=== PATIENT | male | born 1940 | race African-American/Black ===

== ENCOUNTER 2018-04-17 16:41 | Inpatient (IN) ==
[2018-04-17 20:58] LABS: Basophils % 0.3 % (0.0-0.8); Eosinophils # 0.1 10*3/uL (0.0-0.87); Eosinophils % 0.8 % (0.00-10.9); Hematocrit 44.6 VOL% (42.0-52.0); Hemoglobin 14.6 GM/DL (14.0-18.0); Immature Granulocytes % 0.5 %; Immature Granulocytes Absolute 0.04 #; Lymphocytes # 1.4 10*3/uL (1.4-4.0); Lymphocytes % 18.6 % (21.2-54.2); Mean Corpuscular HGB Conc 32.7 GM/DL (32-36); Mean Corpuscular Hemoglobin 27 PG (27-34); Mean Corpuscular Volume 82.9 FL (87-102); Mean Platelet Volume 8.9 FL (9.6-12.0); Monocytes # 0.7 10*3/uL (0.11-0.8); Monocytes % 8.4 % (1.7-12.7); NRBC # 0.02 10*3/uL; Neutrophils # 5.6 10*3/uL (1.4-7.4); Neutrophils % 71.4 % (38.7-73.9); Platelet Count 284 T/CUMM (130-400); Red Blood Count 5.38 MC/CUMM (3.8-5.5); Red Cell Distribution Width 16.3 % (9.3-17.3); White Blood Count 7.8 T/CUMM (4-12)
[2018-04-17 21:24] LABS: Calcium 7.7 MG/DL (8.5-10.1); Osmolality,Calculated 278.4 MOS/KG (273-304)
[2018-04-17 21:25] LABS: Potassium 2.4 MMOL/L (3.5-5.1)
[2018-04-17 21:28] LABS: Albumin 2.9 G/DL (3.4-5.0); Bilirubin,Total 0.7 MG/DL (0.2-1.0); Calcium 7.7 MG/DL (8.5-10.1); Osmolality,Calculated 279.4 MOS/KG (273-304); Total Protein 7.8 G/DL (6.4-8.3)
[2018-04-17] MEDS ORDERED: DOCUSATE SODIUM 100 MG CAPSULE PO PRN (21:29)
[2018-04-17] MEDS ORDERED: ACETAMINOPHEN 325 MG TABLET PO PRN (21:29)
[2018-04-17] MEDS ORDERED: ALBUTEROL 2.5 MG/3 ML NEB RESP TX PRN (21:29)
[2018-04-17 21:32] LABS: Potassium 2.4 MMOL/L (3.5-5.1)
[2018-04-17] MEDS: POTASSIUM CHLORIDE RIDER 10 MEQ in PREMIX 1 EACH IV PRN ×3 (21:47→23:44)
[2018-04-17] MEDS ORDERED: DIGOXIN 0.5 MG/2 ML AMP IV ONE (22:00)
[2018-04-17] MEDS: APIXABAN 5 MG TABLET PO SCH (22:02)
[2018-04-17] MEDS: METOPROLOL TARTRATE 25 MG TABLET PO SCH (22:03)
[2018-04-17] MEDS: BUDESONIDE/FORMOTEROL 80-4.5 INHALER 6.9 GM INH SCH (22:47)
[2018-04-17] MEDS: LATANOPROST 0.005% OPH SOLN 2.5 ML BOTTLE BOTH EYES SCH (22:49)
[2018-04-17] MEDS: AMIODARONE INJ 450 MG in DEXTROSE 5% 241 ML IV SCH (23:21)
[2018-04-18] MEDS: POTASSIUM CHLORIDE RIDER 10 MEQ in PREMIX 1 EACH IV PRN ×4 (00:58→07:54)
[2018-04-18 06:28] LABS: Basophils % 0.3 % (0.0-0.8); Eosinophils # 0.2 10*3/uL (0.0-0.87); Eosinophils % 1.9 % (0.00-10.9); Hematocrit 42.9 VOL% (42.0-52.0); Hemoglobin 14.1 GM/DL (14.0-18.0); Immature Granulocytes % 0.4 %; Immature Granulocytes Absolute 0.04 #; Lymphocytes # 1.4 10*3/uL (1.4-4.0); Lymphocytes % 15.7 % (21.2-54.2); Mean Corpuscular HGB Conc 32.9 GM/DL (32-36); Mean Corpuscular Hemoglobin 27 PG (27-34); Mean Corpuscular Volume 82.7 FL (87-102); Mean Platelet Volume 9.3 FL (9.6-12.0); Monocytes # 0.8 10*3/uL (0.11-0.8); Monocytes % 8.8 % (1.7-12.7); Neutrophils # 6.7 10*3/uL (1.4-7.4); Neutrophils % 72.9 % (38.7-73.9); Platelet Count 275 T/CUMM (130-400); Red Blood Count 5.19 MC/CUMM (3.8-5.5); Red Cell Distribution Width 15.9 % (9.3-17.3); White Blood Count 9.2 T/CUMM (4-12)
[2018-04-18 06:45] LABS: Albumin 2.7 G/DL (3.4-5.0); Bilirubin,Total 0.7 MG/DL (0.2-1.0); Calcium 7.5 MG/DL (8.5-10.1); Osmolality,Calculated 276.4 MOS/KG (273-304); Potassium 2.8 MMOL/L (3.5-5.1); Risk Ratio 4.19; Thyroid Stimulating Hormone 1.32 uIU/ml (0.358-3.74); Total Protein 7.2 G/DL (6.4-8.3); VLDL CHOLESTEROL 20.8 MG/DL
[2018-04-18] MEDS ORDERED: MAGNESIUM SULF RIDER 4 GM in PREMIX 1 EACH IV ONE (08:04)
[2018-04-18] MEDS ORDERED: DIGOXIN 0.5 MG/2 ML AMP IV ONE (08:05)
[2018-04-18] MEDS: ASPIRIN EC 81 MG TABLET PO SCH (08:11)
[2018-04-18] MEDS: BRIMONIDINE 0.2% OPH SOLN 5 ML BOTTLE BOTH EYES SCH ×3 (08:11→20:10)
[2018-04-18] MEDS: CALCIUM (CARBONATE)/VITAMIN D 600 MG-400 UNIT TABLET PO SCH (08:11)
[2018-04-18] MEDS: APIXABAN 5 MG TABLET PO SCH ×2 (08:11→20:09)
[2018-04-18] MEDS: METOPROLOL TARTRATE 25 MG TABLET PO SCH ×2 (08:12→20:09)
[2018-04-18] MEDS: PANTOPRAZOLE 40 MG TABLET PO SCH (08:12)
[2018-04-18] MEDS ORDERED: ALBUTEROL/IPRATROPIUM 3 ML NEB RESP TX PRN (08:13)
[2018-04-18] MEDS: BUDESONIDE/FORMOTEROL 80-4.5 INHALER 6.9 GM INH SCH ×2 (08:40→20:09)
[2018-04-18] MEDS: LISINOPRIL 10 MG TABLET PO SCH (08:41)
[2018-04-18] MEDS: POTASSIUM CHLORIDE 20 MEQ TABLET PO SCH ×4 (08:51→20:09)
[2018-04-18 09:54] LABS: Amorphous Crystals,Urine Occasional /HPF (Few); Apearance,Urine CLEAR (Clear); Bilirubin,Urine Negative (Negative); Blood, Urine Large mg/dL (Negative); Glucose,Urine (UA) Negative (Negative); Hyaline Casts,Urine 14 /LPF (0-3); Ketones,Urine Negative (Negative); Mucus,Urine Occasional /LPF (Occasional); Nitrite,Urine Negative (Negative); Protein,Urine Negative; RBC,Urine 63 /HPF (0-4); Urine Color Yellow (Yellow); Urine Specific Gravity 1.008 (1.001-1.035); Urine Urobilinogen < 2.0 EU/DL (0.2-1.0); WBC,Urine 2 /HPF (0-6)
[2018-04-18] MEDS: ALBUTEROL/IPRATROPIUM 3 ML NEB RESP TX SCH ×3 (11:40→20:09)
[2018-04-18] MEDS: DIGOXIN 0.125 MG TABLET PO SCH (12:08)
[2018-04-18] MEDS: AMIODARONE INJ 450 MG in DEXTROSE 5% 241 ML IV SCH (16:11)
[2018-04-18] MEDS: LATANOPROST 0.005% OPH SOLN 2.5 ML BOTTLE BOTH EYES SCH (20:09)
[2018-04-19] MEDS: POTASSIUM CHLORIDE 20 MEQ TABLET PO SCH ×4 (00:14→21:49)
[2018-04-19] MEDS: ALBUTEROL/IPRATROPIUM 3 ML NEB RESP TX SCH ×5 (01:13→19:42)
[2018-04-19 05:08] LABS: Basophils % 0.4 % (0.0-0.8); Eosinophils # 0.3 10*3/uL (0.0-0.87); Eosinophils % 3.6 % (0.00-10.9); Hematocrit 43.1 VOL% (42.0-52.0); Hemoglobin 13.9 GM/DL (14.0-18.0); Immature Granulocytes % 0.4 %; Immature Granulocytes Absolute 0.03 #; Lymphocytes # 1.8 10*3/uL (1.4-4.0); Lymphocytes % 21.7 % (21.2-54.2); Mean Corpuscular HGB Conc 32.3 GM/DL (32-36); Mean Corpuscular Hemoglobin 27 PG (27-34); Mean Corpuscular Volume 84.8 FL (87-102); Mean Platelet Volume 9.1 FL (9.6-12.0); Monocytes # 0.8 10*3/uL (0.11-0.8); Monocytes % 9.6 % (1.7-12.7); Neutrophils # 5.3 10*3/uL (1.4-7.4); Neutrophils % 64.3 % (38.7-73.9); Platelet Count 263 T/CUMM (130-400); Red Blood Count 5.08 MC/CUMM (3.8-5.5); Red Cell Distribution Width 15.9 % (9.3-17.3); White Blood Count 8.3 T/CUMM (4-12)
[2018-04-19 05:26] LABS: Calcium 7.1 MG/DL (8.5-10.1); Osmolality,Calculated 274.5 MOS/KG (273-304); Potassium 3.8 MMOL/L (3.5-5.1)
[2018-04-19] MEDS: METOPROLOL TARTRATE 25 MG TABLET PO SCH ×2 (09:10→21:49)
[2018-04-19] MEDS: APIXABAN 5 MG TABLET PO SCH ×2 (09:10→21:49)
[2018-04-19] MEDS: FUROSEMIDE 40 MG/4 ML VIAL IV SCH (09:11)
[2018-04-19] MEDS: CALCIUM (CARBONATE)/VITAMIN D 600 MG-400 UNIT TABLET PO SCH (09:11)
[2018-04-19] MEDS: LISINOPRIL 10 MG TABLET PO SCH (09:11)
[2018-04-19] MEDS: ASPIRIN EC 81 MG TABLET PO SCH (09:11)
[2018-04-19] MEDS: PANTOPRAZOLE 40 MG TABLET PO SCH (09:11)
[2018-04-19] MEDS: BRIMONIDINE 0.2% OPH SOLN 5 ML BOTTLE BOTH EYES SCH ×3 (09:15→21:49)
[2018-04-19] MEDS: BUDESONIDE/FORMOTEROL 80-4.5 INHALER 6.9 GM INH SCH ×2 (09:15→21:49)
[2018-04-19] MEDS: AMIODARONE INJ 450 MG in DEXTROSE 5% 241 ML IV SCH (09:23)
[2018-04-19] MEDS: DIGOXIN 0.125 MG TABLET PO SCH (14:52)
[2018-04-19] MEDS: LATANOPROST 0.005% OPH SOLN 2.5 ML BOTTLE BOTH EYES SCH (21:53)
[2018-04-20] MEDS: AMIODARONE INJ 450 MG in DEXTROSE 5% 241 ML IV SCH ×2 (00:24→17:32)
[2018-04-20] MEDS: ALBUTEROL/IPRATROPIUM 3 ML NEB RESP TX SCH ×7 (01:07→23:46)
[2018-04-20 05:49] LABS: Calcium 6.4 MG/DL (8.5-10.1); Osmolality,Calculated 280.3 MOS/KG (273-304); Potassium 4.1 MMOL/L (3.5-5.1)
[2018-04-20] MEDS: METOPROLOL TARTRATE 25 MG TABLET PO SCH ×2 (09:38→21:42)
[2018-04-20] MEDS: PANTOPRAZOLE 40 MG TABLET PO SCH (09:38)
[2018-04-20] MEDS: ASPIRIN EC 81 MG TABLET PO SCH (09:38)
[2018-04-20] MEDS: CALCIUM (CARBONATE)/VITAMIN D 600 MG-400 UNIT TABLET PO SCH (09:38)
[2018-04-20] MEDS: APIXABAN 5 MG TABLET PO SCH ×2 (09:38→21:43)
[2018-04-20] MEDS: FUROSEMIDE 40 MG/4 ML VIAL IV SCH (09:39)
[2018-04-20] MEDS: POTASSIUM CHLORIDE 20 MEQ TABLET PO SCH (09:39)
[2018-04-20] MEDS: LISINOPRIL 10 MG TABLET PO SCH (09:39)
[2018-04-20] MEDS: BRIMONIDINE 0.2% OPH SOLN 5 ML BOTTLE BOTH EYES SCH ×3 (09:43→21:42)
[2018-04-20] MEDS: BUDESONIDE/FORMOTEROL 80-4.5 INHALER 6.9 GM INH SCH ×2 (09:43→21:42)
[2018-04-20] MEDS: DIGOXIN 0.125 MG TABLET PO SCH (14:25)
[2018-04-20] MEDS: LATANOPROST 0.005% OPH SOLN 2.5 ML BOTTLE BOTH EYES SCH (21:42)
[2018-04-21] MEDS: ALBUTEROL/IPRATROPIUM 3 ML NEB RESP TX SCH ×4 (03:00→15:05)
[2018-04-21 05:01] LABS: Basophils # 0.1 10*3/uL (0.0-0.2); Basophils % 0.6 % (0.0-0.8); Eosinophils # 0.4 10*3/uL (0.0-0.87); Eosinophils % 4.7 % (0.00-10.9); Hematocrit 39.6 VOL% (42.0-52.0); Hemoglobin 12.9 GM/DL (14.0-18.0); Immature Granulocytes % 0.6 %; Immature Granulocytes Absolute 0.05 #; Lymphocytes # 1.6 10*3/uL (1.4-4.0); Lymphocytes % 20.6 % (21.2-54.2); Mean Corpuscular HGB Conc 32.6 GM/DL (32-36); Mean Corpuscular Hemoglobin 28 PG (27-34); Mean Corpuscular Volume 85.5 FL (87-102); Mean Platelet Volume 9.1 FL (9.6-12.0); Monocytes # 0.8 10*3/uL (0.11-0.8); Monocytes % 10.5 % (1.7-12.7); Platelet Count 234 T/CUMM (130-400); Red Blood Count 4.63 MC/CUMM (3.8-5.5); White Blood Count 7.9 T/CUMM (4-12)
[2018-04-21 05:37] LABS: Calcium 6.3 MG/DL (8.5-10.1); Osmolality,Calculated 274.7 MOS/KG (273-304); Potassium 3.8 MMOL/L (3.5-5.1)
[2018-04-21] MEDS ORDERED: MIDAZOLAM 2 MG/2 ML VIAL ONE (06:33)
[2018-04-21] MEDS ORDERED: MIDAZOLAM 2 MG/2 ML VIAL IV ONE ×2 (06:39→06:42)
[2018-04-21] MEDS: METOPROLOL TARTRATE 25 MG TABLET PO SCH ×2 (08:54→21:15)
[2018-04-21] MEDS: CALCIUM (CARBONATE)/VITAMIN D 600 MG-400 UNIT TABLET PO SCH (08:54)
[2018-04-21] MEDS: AMIODARONE 200 MG TABLET PO SCH ×2 (08:54→21:16)
[2018-04-21] MEDS: APIXABAN 5 MG TABLET PO SCH ×2 (08:55→21:15)
[2018-04-21] MEDS: FUROSEMIDE 40 MG/4 ML VIAL IV SCH (08:55)
[2018-04-21] MEDS: PANTOPRAZOLE 40 MG TABLET PO SCH (08:55)
[2018-04-21] MEDS: BRIMONIDINE 0.2% OPH SOLN 5 ML BOTTLE BOTH EYES SCH ×3 (08:55→21:16)
[2018-04-21] MEDS: ASPIRIN EC 81 MG TABLET PO SCH (08:55)
[2018-04-21] MEDS: LISINOPRIL 10 MG TABLET PO SCH (08:55)
[2018-04-21] MEDS: BUDESONIDE/FORMOTEROL 80-4.5 INHALER 6.9 GM INH SCH ×2 (08:55→21:16)
[2018-04-21] MEDS: AMIODARONE INJ 450 MG in DEXTROSE 5% 241 ML IV SCH (09:07)
[2018-04-21] MEDS ORDERED: MAGNESIUM SULF RIDER 4 GM in PREMIX 1 EACH IV ONE (11:19)
[2018-04-21] MEDS: DIGOXIN 0.125 MG TABLET PO SCH (12:34)
[2018-04-21] MEDS ORDERED: LEVALBUTEROL 0.63 MG/3 ML NEB RESP TX PRN (18:36)
[2018-04-21] MEDS: IPRATROPIUM 500 MCG/2.5 ML NEB RESP TX SCH (19:29)
[2018-04-21] MEDS: LEVALBUTEROL 0.63 MG/3 ML NEB RESP TX SCH ×2 (19:29→19:30)
[2018-04-21] MEDS: LATANOPROST 0.005% OPH SOLN 2.5 ML BOTTLE BOTH EYES SCH (21:17)
[2018-04-22] MEDS: LEVALBUTEROL 0.63 MG/3 ML NEB RESP TX SCH ×4 (00:47→20:09)
[2018-04-22] MEDS: IPRATROPIUM 500 MCG/2.5 ML NEB RESP TX SCH ×4 (00:47→20:09)
[2018-04-22 05:09] LABS: Basophils # 0.1 10*3/uL (0.0-0.2); Basophils % 0.7 % (0.0-0.8); Eosinophils # 0.3 10*3/uL (0.0-0.87); Eosinophils % 3.6 % (0.00-10.9); Hematocrit 41.9 VOL% (42.0-52.0); Hemoglobin 13.2 GM/DL (14.0-18.0); Immature Granulocytes % 0.3 %; Immature Granulocytes Absolute 0.02 #; Lymphocytes # 1.6 10*3/uL (1.4-4.0); Lymphocytes % 20.7 % (21.2-54.2); Mean Corpuscular HGB Conc 31.5 GM/DL (32-36); Mean Corpuscular Hemoglobin 27 PG (27-34); Monocytes # 0.7 10*3/uL (0.11-0.8); Monocytes % 9.9 % (1.7-12.7); Neutrophils # 4.9 10*3/uL (1.4-7.4); Neutrophils % 64.8 % (38.7-73.9); Platelet Count 246 T/CUMM (130-400); Red Blood Count 4.93 MC/CUMM (3.8-5.5); Red Cell Distribution Width 15.8 % (9.3-17.3); White Blood Count 7.5 T/CUMM (4-12)
[2018-04-22 05:29] LABS: Calcium 6.4 MG/DL (8.5-10.1); Osmolality,Calculated 276.5 MOS/KG (273-304); Potassium 3.5 MMOL/L (3.5-5.1)
[2018-04-22] MEDS: POTASSIUM CHLORIDE RIDER 10 MEQ in PREMIX 1 EACH IV PRN ×3 (09:35→12:41)
[2018-04-22] MEDS: LISINOPRIL 10 MG TABLET PO SCH (09:36)
[2018-04-22] MEDS: CALCIUM (CARBONATE)/VITAMIN D 600 MG-400 UNIT TABLET PO SCH (09:36)
[2018-04-22] MEDS: FUROSEMIDE 40 MG/4 ML VIAL IV SCH (09:36)
[2018-04-22] MEDS: ASPIRIN EC 81 MG TABLET PO SCH (09:36)
[2018-04-22] MEDS: AMIODARONE 200 MG TABLET PO SCH ×2 (09:36→21:26)
[2018-04-22] MEDS: APIXABAN 5 MG TABLET PO SCH ×2 (09:36→21:26)
[2018-04-22] MEDS: PANTOPRAZOLE 40 MG TABLET PO SCH (09:36)
[2018-04-22] MEDS: METOPROLOL TARTRATE 25 MG TABLET PO SCH ×2 (09:36→21:26)
[2018-04-22] MEDS: BUDESONIDE/FORMOTEROL 80-4.5 INHALER 6.9 GM INH SCH ×2 (09:37→21:26)
[2018-04-22] MEDS: BRIMONIDINE 0.2% OPH SOLN 5 ML BOTTLE BOTH EYES SCH ×3 (09:37→21:26)
[2018-04-22] MEDS: DIGOXIN 0.125 MG TABLET PO SCH (12:39)
[2018-04-22] MEDS: LATANOPROST 0.005% OPH SOLN 2.5 ML BOTTLE BOTH EYES SCH (21:30)
[2018-04-23] MEDS: IPRATROPIUM 500 MCG/2.5 ML NEB RESP TX SCH ×4 (00:50→19:24)
[2018-04-23] MEDS: LEVALBUTEROL 0.63 MG/3 ML NEB RESP TX SCH ×4 (00:50→19:24)
[2018-04-23] MEDS ORDERED: LORazepam 2 MG/1 ML VIAL IV ONE (04:46)
[2018-04-23 05:46] LABS: Basophils # 0.1 10*3/uL (0.0-0.2); Basophils % 0.7 % (0.0-0.8); Eosinophils # 0.4 10*3/uL (0.0-0.87); Eosinophils % 5.1 % (0.00-10.9); Hemoglobin 12.1 GM/DL (14.0-18.0); Immature Granulocytes % 0.4 %; Immature Granulocytes Absolute 0.03 #; Lymphocytes # 1.7 10*3/uL (1.4-4.0); Lymphocytes % 23.4 % (21.2-54.2); Mean Corpuscular HGB Conc 31.8 GM/DL (32-36); Mean Corpuscular Hemoglobin 27 PG (27-34); Mean Corpuscular Volume 84.4 FL (87-102); Mean Platelet Volume 8.8 FL (9.6-12.0); Monocytes # 0.8 10*3/uL (0.11-0.8); Monocytes % 11.5 % (1.7-12.7); Neutrophils # 4.3 10*3/uL (1.4-7.4); Neutrophils % 58.9 % (38.7-73.9); Platelet Count 222 T/CUMM (130-400); Red Cell Distribution Width 15.6 % (9.3-17.3); White Blood Count 7.3 T/CUMM (4-12)
[2018-04-23 06:07] LABS: Calcium 5.9 MG/DL (8.5-10.1); Osmolality,Calculated 272.8 MOS/KG (273-304); Potassium 3.6 MMOL/L (3.5-5.1)
[2018-04-23] MEDS ORDERED: POTASSIUM CHLORIDE 20 MEQ TABLET PO PRN (07:37)
[2018-04-23] MEDS ORDERED: MAGNESIUM OXIDE 400 MG TABLET PO ONE (08:12)
[2018-04-23] MEDS: APIXABAN 5 MG TABLET PO SCH ×2 (09:34→20:56)
[2018-04-23] MEDS: FUROSEMIDE 40 MG/4 ML VIAL IV SCH (09:35)
[2018-04-23] MEDS: ASPIRIN EC 81 MG TABLET PO SCH (09:35)
[2018-04-23] MEDS: CALCIUM (CARBONATE)/VITAMIN D 600 MG-400 UNIT TABLET PO SCH (09:35)
[2018-04-23] MEDS: METOPROLOL TARTRATE 25 MG TABLET PO SCH ×2 (09:35→20:56)
[2018-04-23] MEDS: AMIODARONE 200 MG TABLET PO SCH ×2 (09:35→20:56)
[2018-04-23] MEDS: PANTOPRAZOLE 40 MG TABLET PO SCH (09:35)
[2018-04-23] MEDS: LISINOPRIL 10 MG TABLET PO SCH (09:35)
[2018-04-23] MEDS: BRIMONIDINE 0.2% OPH SOLN 5 ML BOTTLE BOTH EYES SCH ×3 (09:36→20:58)
[2018-04-23] MEDS: BUDESONIDE/FORMOTEROL 80-4.5 INHALER 6.9 GM INH SCH ×2 (09:36→20:57)
[2018-04-23] MEDS: DIGOXIN 0.125 MG TABLET PO SCH (14:15)
[2018-04-23] MEDS: LATANOPROST 0.005% OPH SOLN 2.5 ML BOTTLE BOTH EYES SCH (20:59)
[2018-04-24] MEDS: LEVALBUTEROL 0.63 MG/3 ML NEB RESP TX SCH ×3 (00:43→12:27)
[2018-04-24] MEDS: IPRATROPIUM 500 MCG/2.5 ML NEB RESP TX SCH ×3 (00:43→12:27)
[2018-04-24] MEDS ORDERED: LORazepam 2 MG/1 ML VIAL IV ONE (04:19)
[2018-04-24] MEDS ORDERED: BISACODYL 5 MG TABLET PO PRN (04:19)
[2018-04-24] MEDS ORDERED: LISINOPRIL 10 MG TABLET PO SCH (09:00)
[2018-04-24] MEDS: METOPROLOL TARTRATE 25 MG TABLET PO SCH (09:16)
[2018-04-24] MEDS: FUROSEMIDE 40 MG/4 ML VIAL IV SCH (09:16)
[2018-04-24] MEDS: AMIODARONE 200 MG TABLET PO SCH (09:17)
[2018-04-24] MEDS: PANTOPRAZOLE 40 MG TABLET PO SCH (09:17)
[2018-04-24] MEDS: BUDESONIDE/FORMOTEROL 80-4.5 INHALER 6.9 GM INH SCH (09:17)
[2018-04-24] MEDS: APIXABAN 5 MG TABLET PO SCH (09:17)
[2018-04-24] MEDS: ASPIRIN EC 81 MG TABLET PO SCH (09:17)
[2018-04-24] MEDS: CALCIUM (CARBONATE)/VITAMIN D 600 MG-400 UNIT TABLET PO SCH (09:21)
[2018-04-24] MEDS: BRIMONIDINE 0.2% OPH SOLN 5 ML BOTTLE BOTH EYES SCH (09:21)
[2018-04-24 12:17] VITALS: BP 92/61
== END 2018-04-24 13:15 | disposition home health service (06) | DRG 308 ==
LOC: SUATTDRO 20:02 → N.CC 20:02 → N.TELEN 04-21 18:32
PROVIDERS: ADMIT Internal Medicine; ATTEND Internal Medicine Geriatric Medicine

== ENCOUNTER 2018-07-01 14:28 | Inpatient (IN) ==
[2018-07-01] MEDS ORDERED: ALBUTEROL/IPRATROPIUM 3 ML NEB RESP TX PRN (14:51)
[2018-07-01] MEDS ORDERED: NOREPINEPHRINE 4 MG/4 ML VIAL IV ONE (14:53)
[2018-07-01] MEDS ORDERED: ETOMIDATE 20 MG/10 ML VIAL IV ONE ×2 (14:58→16:22)
[2018-07-01] MEDS ORDERED: ROCURONIUM 100 MG/10 ML VIAL IV ONE ×2 (14:59→16:22)
[2018-07-01 15:06] LABS: Basophils # 0.1 10*3/uL (0.0-0.2); Basophils % 0.5 % (0.0-0.8); Eosinophils # 0.1 10*3/uL (0.0-0.87); Eosinophils % 0.7 % (0.00-10.9); Hematocrit 45.7 VOL% (42.0-52.0); Hemoglobin 14.3 GM/DL (14.0-18.0); Immature Granulocytes % 3.8 %; Immature Granulocytes Absolute 0.48 #; Lymphocytes # 2.5 10*3/uL (1.4-4.0); Lymphocytes % 19.8 % (21.2-54.2); Mean Corpuscular HGB Conc 31.3 GM/DL (32-36); Mean Corpuscular Hemoglobin 28 PG (27-34); Mean Corpuscular Volume 89.4 FL (87-102); Mean Platelet Volume 9.8 FL (9.6-12.0); Monocytes # 0.5 10*3/uL (0.11-0.8); Monocytes % 3.7 % (1.7-12.7); NRBC # 0.02 10*3/uL; Neutrophils # 9.1 10*3/uL (1.4-7.4); Neutrophils % 71.5 % (38.7-73.9); Platelet Count 296 T/CUMM (130-400); Red Blood Count 5.11 MC/CUMM (3.8-5.5); Red Cell Distribution Width 16.4 % (9.3-17.3); White Blood Count 12.7 T/CUMM (4-12)
[2018-07-01 15:09] LABS: ABG Base Excess -6.4 MMOL/L (-2.5-2.5); ABG HCO3 19.3 MMOL/L (20-26); ABG PCO2 45.5 MM HG (35-48); ABG PO2 91.4 MM HG (80-95); ABG TCO2 18.1 MMOL/L (23-27)
[2018-07-01 15:14] LABS: INR 1.1; PT Patient Result 12.3 SECS
[2018-07-01] MEDS: NOREPINEPHRINE 8 MG in SODIUM CHLORIDE 0.9% 242 ML IV PRN (15:30)
[2018-07-01] MEDS: SODIUM CHLORIDE 0.9% 1,000 ML IV SCH (15:30)
[2018-07-01 15:31] LABS: Albumin 2.6 G/DL (3.4-5.0); Bilirubin,Total 0.7 MG/DL (0.2-1.0); Osmolality,Calculated 285.3 MOS/KG (273-304); Potassium 3.9 MMOL/L (3.5-5.1); Total Protein 7.8 G/DL (6.4-8.3)
[2018-07-01 15:33] LABS: Calcium 5.6 MG/DL (8.5-10.1)
[2018-07-01] MEDS ORDERED: CALCIUM GLUCONATE 2,000 MG in SODIUM CHLORIDE 0.9% 100 ML IV ONE (15:52)
[2018-07-01] MEDS ORDERED: HEPARIN/NACL 0.9% 2 UNITS/ML 500 ML IV ONE (16:43)
[2018-07-01] MEDS ORDERED: EPINEPHrine 1 MG/ML VIAL ONE (17:03)
[2018-07-01] MEDS ORDERED: MAGNESIUM SULF RIDER 4 GM in PREMIX 1 EACH IV PRN (17:18)
[2018-07-01] MEDS ORDERED: DEXTROSE 50% 25 GM/50 ML SYRINGE IV PRN (17:20)
[2018-07-01] MEDS ORDERED: GLUCAGON 1 MG VIAL IM PRN (17:20)
[2018-07-01] MEDS: PANTOPRAZOLE 40 MG VIAL IV SCH (17:22)
[2018-07-01] MEDS: CISATRACURIUM 200 MG in SODIUM CHLORIDE 0.9% 180 ML IV SCH (17:22)
[2018-07-01] MEDS: fentaNYL INJ 1,250 MCG in SODIUM CHLORIDE 0.9% 225 ML IV PRN (17:35)
[2018-07-01 18:05] LABS: Partial Thromboplastin Time 28.2 SECS (0-40)
[2018-07-01 18:49] LABS: ABG Base Excess 0.4 MMOL/L (-2.5-2.5); ABG HCO3 24.8 MMOL/L (20-26); ABG PCO2 26.6 MM HG (35-48); ABG PH 7.516 (7.35-7.45); ABG TCO2 17.7 MMOL/L (23-27)
[2018-07-01] MEDS: LEVOFLOXACIN INJ 500 MG in PREMIX 1 EACH IV SCH (18:58)
[2018-07-01] MEDS: PIPERACILLIN/TAZOBACTAM 3,375 MG in SODIUM CHLORIDE 0.9% 100 ML IV SCH (18:58)
[2018-07-01] MEDS ORDERED: SODIUM CHLORIDE 0.9% 250 ML IV ONE (20:15)
[2018-07-01] MEDS: PROPOFOL 1,000 MG/100 ML BOTTLE IV SCH ×2 (20:54→22:10)
[2018-07-01] MEDS: INSULIN REGULAR 100 UNIT/ML IV SCH (20:55)
[2018-07-01 21:56] LABS: Basophils % 0.2 % (0.0-0.8); Eosinophils % 0.1 % (0.00-10.9); Hematocrit 43.6 VOL% (42.0-52.0); Hemoglobin 14.2 GM/DL (14.0-18.0); Immature Granulocytes % 1.5 %; Immature Granulocytes Absolute 0.21 #; Lymphocytes % 7.1 % (21.2-54.2); Mean Corpuscular HGB Conc 32.6 GM/DL (32-36); Mean Corpuscular Hemoglobin 28 PG (27-34); Mean Corpuscular Volume 86.2 FL (87-102); Mean Platelet Volume 9.4 FL (9.6-12.0); Monocytes # 0.7 10*3/uL (0.11-0.8); Neutrophils # 12.2 10*3/uL (1.4-7.4); Neutrophils % 86.1 % (38.7-73.9); Platelet Count 255 T/CUMM (130-400); Red Blood Count 5.06 MC/CUMM (3.8-5.5); Red Cell Distribution Width 16.4 % (9.3-17.3); White Blood Count 14.2 T/CUMM (4-12)
[2018-07-01 22:04] LABS: INR 1.4; PT Patient Result 15.4 SECS; Partial Thromboplastin Time 29.9 SECS (0-40)
[2018-07-01] MEDS: MINERAL OIL/PETROLATUM OPH OINT 3.5 GM TUBE BOTH EYES SCH (22:07)
[2018-07-01 22:12] LABS: Troponin I 0.425 NG/ML (0.00-0.045)
[2018-07-01 22:15] LABS: Calcium 6.1 MG/DL (8.5-10.1); Osmolality,Calculated 299.7 MOS/KG (273-304)
[2018-07-01 22:23] LABS: Potassium 2.4 MMOL/L (3.5-5.1)
[2018-07-01] MEDS: POTASSIUM CHLORIDE RIDER 20 MEQ in PREMIX 1 EACH IV PRN (22:29)
[2018-07-01] MEDS: MAGNESIUM SULF RIDER 2 GM in PREMIX 1 EACH IV PRN (22:35)
[2018-07-01 23:06] LABS: Apearance,Urine CLOUDY (Clear); Bacteria,Urine Occasional /HPF (Few); Bilirubin,Urine Negative (Negative); Blood, Urine Large mg/dL (Negative); Glucose,Urine (UA) 50 mg/dL (Negative); Ketones,Urine Negative (Negative); Nitrite,Urine Negative (Negative); Protein,Urine 30 MG/DL; RBC,Urine 4996 /HPF (0-4); Urine Color Red (Yellow); Urine Specific Gravity 1.006 (1.001-1.035); Urine Urobilinogen < 2.0 EU/DL (0.2-1.0); WBC,Urine 58 /HPF (0-6)
[2018-07-02] MEDS: POTASSIUM CHLORIDE RIDER 20 MEQ in PREMIX 1 EACH IV PRN ×3 (00:05→05:38)
[2018-07-02] MEDS: INSULIN REGULAR 100 UNIT/ML IV SCH ×6 (00:19→20:28)
[2018-07-02] MEDS: PIPERACILLIN/TAZOBACTAM 3,375 MG in SODIUM CHLORIDE 0.9% 100 ML IV SCH ×3 (01:57→18:14)
[2018-07-02 03:46] LABS: Basophils % 0.2 % (0.0-0.8); Hematocrit 42.5 VOL% (42.0-52.0); Hemoglobin 13.9 GM/DL (14.0-18.0); Immature Granulocytes % 0.8 %; Lymphocytes # 0.7 10*3/uL (1.4-4.0); Lymphocytes % 5.1 % (21.2-54.2); Mean Corpuscular HGB Conc 32.7 GM/DL (32-36); Mean Corpuscular Hemoglobin 28 PG (27-34); Mean Corpuscular Volume 85.5 FL (87-102); Mean Platelet Volume 9.8 FL (9.6-12.0); Monocytes # 0.8 10*3/uL (0.11-0.8); Neutrophils # 11.6 10*3/uL (1.4-7.4); Neutrophils % 87.9 % (38.7-73.9); Platelet Count 248 T/CUMM (130-400); Red Blood Count 4.97 MC/CUMM (3.8-5.5); Red Cell Distribution Width 16.2 % (9.3-17.3); White Blood Count 13.2 T/CUMM (4-12)
[2018-07-02 03:56] LABS: INR 1.5; Partial Thromboplastin Time 32.5 SECS (0-40)
[2018-07-02 03:57] LABS: ABG Base Excess -1.5 MMOL/L (-2.5-2.5); ABG HCO3 23.2 MMOL/L (20-26); ABG Oxygen Saturation 99.3 % (95-100); ABG PCO2 31.4 MM HG (35-48); ABG PH 7.443 (7.35-7.45); ABG TCO2 18.3 MMOL/L (23-27); Pt O2 Delivery Device Ventilator
[2018-07-02 04:10] LABS: Troponin I 0.314 NG/ML (0.00-0.045)
[2018-07-02 04:14] LABS: Albumin 2.5 G/DL (3.4-5.0); Bilirubin,Total 1.2 MG/DL (0.2-1.0); Osmolality,Calculated 295.8 MOS/KG (273-304); Potassium 3.7 MMOL/L (3.5-5.1); Risk Ratio 2.86; Thyroid Stimulating Hormone 2.82 uIU/ml (0.358-3.74); Total Protein 6.9 G/DL (6.4-8.3); VLDL CHOLESTEROL 15.8 MG/DL
[2018-07-02 04:23] LABS: Calcium 5.8 MG/DL (8.5-10.1)
[2018-07-02] MEDS ORDERED: CALCIUM GLUCONATE 2,000 MG in SODIUM CHLORIDE 0.9% 100 ML IV ONE ×2 (05:00→09:00)
[2018-07-02] MEDS: SODIUM CHLORIDE 0.9% 1,000 ML IV SCH ×3 (05:41→09:47)
[2018-07-02 06:28] LABS: Apearance,Urine Slightly Hazy (Clear); Bilirubin,Urine Negative (Negative); Blood, Urine Large mg/dL (Negative); Glucose,Urine (UA) Negative (Negative); Ketones,Urine Negative (Negative); Mucus,Urine Occasional /LPF (Occasional); Nitrite,Urine Negative (Negative); Protein,Urine Negative; RBC,Urine 951 /HPF (0-4); Urine Color Yellow (Yellow); Urine Specific Gravity 1.009 (1.001-1.035); Urine Urobilinogen < 2.0 EU/DL (0.2-1.0); WBC,Urine <1 /HPF (0-6)
[2018-07-02] MEDS: fentaNYL INJ 1,250 MCG in SODIUM CHLORIDE 0.9% 225 ML IV PRN (08:28)
[2018-07-02] MEDS: MINERAL OIL/PETROLATUM OPH OINT 3.5 GM TUBE BOTH EYES SCH ×3 (09:12→21:11)
[2018-07-02 09:54] LABS: Basophils % 0.1 % (0.0-0.8); Hematocrit 43.3 VOL% (42.0-52.0); Hemoglobin 14.2 GM/DL (14.0-18.0); Immature Granulocytes % 0.5 %; Immature Granulocytes Absolute 0.06 #; Lymphocytes # 0.9 10*3/uL (1.4-4.0); Lymphocytes % 7.2 % (21.2-54.2); Mean Corpuscular HGB Conc 32.8 GM/DL (32-36); Mean Corpuscular Hemoglobin 28 PG (27-34); Mean Corpuscular Volume 85.6 FL (87-102); Mean Platelet Volume 9.5 FL (9.6-12.0); Monocytes # 0.7 10*3/uL (0.11-0.8); Monocytes % 5.7 % (1.7-12.7); Neutrophils # 10.9 10*3/uL (1.4-7.4); Neutrophils % 86.5 % (38.7-73.9); Platelet Count 242 T/CUMM (130-400); Red Blood Count 5.06 MC/CUMM (3.8-5.5); Red Cell Distribution Width 16.6 % (9.3-17.3); White Blood Count 12.5 T/CUMM (4-12)
[2018-07-02 10:03] LABS: Osmolality,Calculated 298.6 MOS/KG (273-304)
[2018-07-02 10:05] LABS: INR 1.5; PT Patient Result 15.7 SECS; Partial Thromboplastin Time 31.4 SECS (0-40)
[2018-07-02 10:09] LABS: Troponin I 0.192 NG/ML (0.00-0.045)
[2018-07-02] MEDS: PANTOPRAZOLE 40 MG VIAL IV SCH (14:23)
[2018-07-02 16:00] LABS: Basophils % 0.2 % (0.0-0.8); Hematocrit 43.8 VOL% (42.0-52.0); Immature Granulocytes % 0.6 %; Immature Granulocytes Absolute 0.07 #; Lymphocytes # 0.7 10*3/uL (1.4-4.0); Lymphocytes % 6.5 % (21.2-54.2); Mean Corpuscular Hemoglobin 28 PG (27-34); Mean Corpuscular Volume 86.2 FL (87-102); Mean Platelet Volume 9.7 FL (9.6-12.0); Monocytes # 0.6 10*3/uL (0.11-0.8); Monocytes % 5.1 % (1.7-12.7); Neutrophils # 9.9 10*3/uL (1.4-7.4); Neutrophils % 87.6 % (38.7-73.9); Platelet Count 228 T/CUMM (130-400); Red Blood Count 5.08 MC/CUMM (3.8-5.5); Red Cell Distribution Width 16.7 % (9.3-17.3); White Blood Count 11.3 T/CUMM (4-12)
[2018-07-02 16:11] LABS: INR 1.4; PT Patient Result 15.6 SECS; Partial Thromboplastin Time 33.4 SECS (0-40)
[2018-07-02 16:17] LABS: Osmolality,Calculated 296.7 MOS/KG (273-304); Potassium 3.9 MMOL/L (3.5-5.1)
[2018-07-02] MEDS: LEVOFLOXACIN INJ 500 MG in PREMIX 1 EACH IV SCH (17:06)
[2018-07-02] MEDS: PROPOFOL 1,000 MG/100 ML BOTTLE IV SCH (17:09)
[2018-07-02] MEDS: CISATRACURIUM 200 MG in SODIUM CHLORIDE 0.9% 180 ML IV SCH (17:10)
[2018-07-02 22:30] LABS: Basophils % 0.1 % (0.0-0.8); Hematocrit 41.5 VOL% (42.0-52.0); Hemoglobin 13.5 GM/DL (14.0-18.0); Immature Granulocytes % 0.5 %; Immature Granulocytes Absolute 0.06 #; Lymphocytes # 0.7 10*3/uL (1.4-4.0); Lymphocytes % 6.3 % (21.2-54.2); Mean Corpuscular HGB Conc 32.5 GM/DL (32-36); Mean Corpuscular Hemoglobin 28 PG (27-34); Mean Corpuscular Volume 86.6 FL (87-102); Mean Platelet Volume 9.9 FL (9.6-12.0); Monocytes # 0.5 10*3/uL (0.11-0.8); Monocytes % 4.5 % (1.7-12.7); Neutrophils # 9.7 10*3/uL (1.4-7.4); Neutrophils % 88.6 % (38.7-73.9); Platelet Count 221 T/CUMM (130-400); Red Blood Count 4.79 MC/CUMM (3.8-5.5); Red Cell Distribution Width 16.8 % (9.3-17.3)
[2018-07-02 22:41] LABS: INR 1.5; PT Patient Result 16.3 SECS; Partial Thromboplastin Time 34.1 SECS (0-40)
[2018-07-02 22:46] LABS: Calcium 6.6 MG/DL (8.5-10.1); Osmolality,Calculated 294.8 MOS/KG (273-304); Potassium 3.7 MMOL/L (3.5-5.1)
[2018-07-03] MEDS: INSULIN REGULAR 100 UNIT/ML IV SCH ×2 (00:05→04:16)
[2018-07-03] MEDS: fentaNYL INJ 1,250 MCG in SODIUM CHLORIDE 0.9% 225 ML IV PRN ×2 (00:13→15:10)
[2018-07-03] MEDS: PROPOFOL 1,000 MG/100 ML BOTTLE IV SCH ×3 (00:13→19:00)
[2018-07-03] MEDS: PIPERACILLIN/TAZOBACTAM 3,375 MG in SODIUM CHLORIDE 0.9% 100 ML IV SCH ×3 (02:14→18:31)
[2018-07-03] MEDS ORDERED: ACETAMINOPHEN 325 MG/10.15 ML UDCUP PO PRN (02:31)
[2018-07-03 04:11] LABS: Basophils % 0.2 % (0.0-0.8); Eosinophils % 0.2 % (0.00-10.9); Hematocrit 40.3 VOL% (42.0-52.0); Immature Granulocytes % 0.5 %; Immature Granulocytes Absolute 0.05 #; Lymphocytes # 0.8 10*3/uL (1.4-4.0); Lymphocytes % 7.6 % (21.2-54.2); Mean Corpuscular HGB Conc 32.3 GM/DL (32-36); Mean Corpuscular Hemoglobin 28 PG (27-34); Mean Corpuscular Volume 86.7 FL (87-102); Mean Platelet Volume 9.6 FL (9.6-12.0); Monocytes # 0.4 10*3/uL (0.11-0.8); Monocytes % 4.4 % (1.7-12.7); Neutrophils # 8.7 10*3/uL (1.4-7.4); Neutrophils % 87.1 % (38.7-73.9); Platelet Count 209 T/CUMM (130-400); Red Blood Count 4.65 MC/CUMM (3.8-5.5); Red Cell Distribution Width 16.9 % (9.3-17.3)
[2018-07-03 04:27] LABS: Albumin 2.1 G/DL (3.4-5.0); Bilirubin,Total 1.2 MG/DL (0.2-1.0); Calcium 6.4 MG/DL (8.5-10.1); Osmolality,Calculated 298.4 MOS/KG (273-304); Potassium 3.8 MMOL/L (3.5-5.1); Total Protein 6.1 G/DL (6.4-8.3)
[2018-07-03 04:28] LABS: INR 1.5; PT Patient Result 16.3 SECS; Partial Thromboplastin Time 34.2 SECS (0-40)
[2018-07-03 04:50] LABS: ABG Base Excess -2.3 MMOL/L (-2.5-2.5); ABG HCO3 22.5 MMOL/L (20-26); ABG PCO2 34.2 MM HG (35-48); ABG PH 7.408 (7.35-7.45); ABG TCO2 18.5 MMOL/L (23-27); Pt O2 Delivery Device Ventilator
[2018-07-03] MEDS: INSULIN REGULAR 100 UNIT/ML SUBCUT SCH ×4 (08:38→19:34)
[2018-07-03] MEDS: MINERAL OIL/PETROLATUM OPH OINT 3.5 GM TUBE BOTH EYES SCH ×3 (08:40→20:15)
[2018-07-03] MEDS ORDERED: SODIUM CHLORIDE 0.9% IV ONE (09:00)
[2018-07-03] MEDS ORDERED: CALCIUM GLUCONATE IV ONE (09:00)
[2018-07-03 09:16] LABS: Basophils % 0.2 % (0.0-0.8); Eosinophils % 0.2 % (0.00-10.9); Hematocrit 40.5 VOL% (42.0-52.0); Hemoglobin 13.1 GM/DL (14.0-18.0); Immature Granulocytes % 0.6 %; Immature Granulocytes Absolute 0.07 #; Lymphocytes # 0.8 10*3/uL (1.4-4.0); Lymphocytes % 6.7 % (21.2-54.2); Mean Corpuscular HGB Conc 32.3 GM/DL (32-36); Mean Corpuscular Hemoglobin 28 PG (27-34); Mean Corpuscular Volume 86.7 FL (87-102); Mean Platelet Volume 10.1 FL (9.6-12.0); Monocytes # 0.7 10*3/uL (0.11-0.8); Monocytes % 5.9 % (1.7-12.7); Neutrophils % 86.4 % (38.7-73.9); Platelet Count 216 T/CUMM (130-400); Red Blood Count 4.67 MC/CUMM (3.8-5.5); Red Cell Distribution Width 17.2 % (9.3-17.3); White Blood Count 11.6 T/CUMM (4-12)
[2018-07-03 09:29] LABS: ABG Base Excess -3.4 MMOL/L (-2.5-2.5); ABG HCO3 21.5 MMOL/L (20-26); ABG Oxygen Saturation 96.6 % (95-100); ABG PCO2 33.9 MM HG (35-48); ABG PH 7.392 (7.35-7.45); ABG PO2 98.1 MM HG (80-95); ABG TCO2 17.8 MMOL/L (23-27); Pt O2 Delivery Device Ventilator
[2018-07-03 09:35] LABS: Alanine Aminotransferase 200 U/L (16-61); Albumin 2.1 G/DL (3.4-5.0); Alkaline Phosphatase 141 U/L (45-117); Aspartate Amino Transferase 231 U/L (0-37); Blood Urea Nitrogen 36 MG/DL (7-18); Calcium 6.4 MG/DL (8.5-10.1); Glucose 85 MG/DL (74-106); Osmolality,Calculated 294.7 MOS/KG (273-304); Sodium 145 MMOL/L (136-145); Total Protein 6.2 G/DL (6.4-8.3)
[2018-07-03 09:36] LABS: Troponin I 0.098 NG/ML (0.00-0.045)
[2018-07-03 10:08] LABS: INR 1.4; PT Patient Result 15.4 SECS; Partial Thromboplastin Time 34.9 SECS (0-40)
[2018-07-03] MEDS: SODIUM CHLORIDE 0.9% 1,000 ML IV SCH (10:51)
[2018-07-03] MEDS: NOREPINEPHRINE 8 MG in SODIUM CHLORIDE 0.9% 242 ML IV PRN ×2 (14:50→23:10)
[2018-07-03] MEDS: PANTOPRAZOLE 40 MG VIAL IV SCH (14:57)
[2018-07-03] MEDS: CISATRACURIUM 200 MG in SODIUM CHLORIDE 0.9% 180 ML IV SCH (16:42)
[2018-07-03] MEDS: LEVOFLOXACIN INJ 500 MG in PREMIX 1 EACH IV SCH (17:06)
[2018-07-04] MEDS: INSULIN REGULAR 100 UNIT/ML SUBCUT SCH ×6 (01:52→20:35)
[2018-07-04] MEDS: PIPERACILLIN/TAZOBACTAM 3,375 MG in SODIUM CHLORIDE 0.9% 100 ML IV SCH (02:38)
[2018-07-04 02:53] LABS: Allen Test Positive; Pt O2 Delivery Device Ventilator
[2018-07-04 02:55] LABS: ABG Base Excess -8.1 MMOL/L (-2.5-2.5); ABG Oxygen Saturation 98.5 % (95-100); ABG PCO2 38.5 MM HG (35-48); ABG PH 7.281 (7.35-7.45); ABG TCO2 16.2 MMOL/L (23-27)
[2018-07-04 04:07] LABS: Basophils % 0.1 % (0.0-0.8); Hematocrit 38.3 VOL% (42.0-52.0); Hemoglobin 11.9 GM/DL (14.0-18.0); Immature Granulocytes % 0.7 %; Immature Granulocytes Absolute 0.09 #; Lymphocytes # 0.8 10*3/uL (1.4-4.0); Lymphocytes % 5.6 % (21.2-54.2); Mean Corpuscular HGB Conc 31.1 GM/DL (32-36); Mean Corpuscular Hemoglobin 28 PG (27-34); Mean Corpuscular Volume 90.3 FL (87-102); Mean Platelet Volume 10.2 FL (9.6-12.0); Monocytes # 1.1 10*3/uL (0.11-0.8); Monocytes % 8.4 % (1.7-12.7); NRBC # 0.02 10*3/uL; Neutrophils # 11.6 10*3/uL (1.4-7.4); Neutrophils % 85.2 % (38.7-73.9); Platelet Count 203 T/CUMM (130-400); Red Blood Count 4.24 MC/CUMM (3.8-5.5); Red Cell Distribution Width 17.9 % (9.3-17.3); White Blood Count 13.6 T/CUMM (4-12)
[2018-07-04 04:37] LABS: Albumin 2.1 G/DL (3.4-5.0); Bilirubin,Total 0.8 MG/DL (0.2-1.0); Osmolality,Calculated 299.6 MOS/KG (273-304); Potassium 4.1 MMOL/L (3.5-5.1); Total Protein 6.3 G/DL (6.4-8.3)
[2018-07-04] MEDS: MAGNESIUM SULF RIDER 2 GM in PREMIX 1 EACH IV PRN (05:37)
[2018-07-04] MEDS: NOREPINEPHRINE 8 MG in SODIUM CHLORIDE 0.9% 242 ML IV PRN ×3 (06:15→16:56)
[2018-07-04] MEDS ORDERED: LIDOCAINE 2% 20 ML VIAL ONE (08:15)
[2018-07-04] MEDS ORDERED: GLUCAGON 1 MG VIAL IM PRN (08:56)
[2018-07-04] MEDS ORDERED: DEXTROSE 50% 25 GM/50 ML VIAL IV PRN (08:56)
[2018-07-04] MEDS ORDERED: SODIUM CHLORIDE 0.9% 1,000 ML IV ONE (09:00)
[2018-07-04] MEDS ORDERED: CALCIUM GLUCONATE 2,000 MG in SODIUM CHLORIDE 0.9% 100 ML IV ONE (09:16)
[2018-07-04] MEDS: fentaNYL INJ 1,250 MCG in SODIUM CHLORIDE 0.9% 225 ML IV PRN (09:38)
[2018-07-04] MEDS: MINERAL OIL/PETROLATUM OPH OINT 3.5 GM TUBE BOTH EYES SCH ×3 (10:48→20:36)
[2018-07-04] MEDS: APIXABAN 5 MG TABLET PO SCH ×2 (10:54→20:40)
[2018-07-04] MEDS: SODIUM CHLORIDE 0.9% 1,000 ML IV SCH (11:17)
[2018-07-04] MEDS: PROPOFOL 1,000 MG/100 ML BOTTLE IV SCH ×2 (15:13→23:55)
[2018-07-04] MEDS: PANTOPRAZOLE 40 MG VIAL IV SCH (15:16)
[2018-07-04] MEDS: LEVOFLOXACIN INJ 500 MG in PREMIX 1 EACH IV SCH (17:35)
[2018-07-04] MEDS: NOREPINEPHRINE 16 MG in SODIUM CHLORIDE 0.9% 234 ML IV PRN (22:01)
[2018-07-05] MEDS: INSULIN REGULAR 100 UNIT/ML SUBCUT SCH ×6 (00:30→20:11)
[2018-07-05 03:42] LABS: ABG Base Excess -7.1 MMOL/L (-2.5-2.5); ABG HCO3 18.7 MMOL/L (20-26); ABG Oxygen Saturation 96.8 % (95-100); ABG PCO2 40.1 MM HG (35-48); ABG PH 7.287 (7.35-7.45); ABG PO2 90.1 MM HG (80-95); ABG TCO2 17.4 MMOL/L (23-27)
[2018-07-05 04:12] LABS: Basophils % 0.2 % (0.0-0.8); Hematocrit 35.8 VOL% (42.0-52.0); Hemoglobin 11.2 GM/DL (14.0-18.0); Immature Granulocytes % 0.9 %; Immature Granulocytes Absolute 0.12 #; Lymphocytes # 0.8 10*3/uL (1.4-4.0); Lymphocytes % 6.5 % (21.2-54.2); Mean Corpuscular HGB Conc 31.3 GM/DL (32-36); Mean Corpuscular Hemoglobin 28 PG (27-34); Mean Corpuscular Volume 88.8 FL (87-102); Mean Platelet Volume 10.5 FL (9.6-12.0); Monocytes # 1.3 10*3/uL (0.11-0.8); Monocytes % 9.9 % (1.7-12.7); Neutrophils # 10.6 10*3/uL (1.4-7.4); Neutrophils % 82.5 % (38.7-73.9); Platelet Count 160 T/CUMM (130-400); Red Blood Count 4.03 MC/CUMM (3.8-5.5); Red Cell Distribution Width 17.7 % (9.3-17.3); White Blood Count 12.9 T/CUMM (4-12)
[2018-07-05 04:29] LABS: Albumin 2.1 G/DL (3.4-5.0); Bilirubin,Total 1.5 MG/DL (0.2-1.0); Calcium 6.4 MG/DL (8.5-10.1); Osmolality,Calculated 300.6 MOS/KG (273-304); Potassium 3.6 MMOL/L (3.5-5.1); Total Protein 6.1 G/DL (6.4-8.3)
[2018-07-05] MEDS: fentaNYL INJ 1,250 MCG in SODIUM CHLORIDE 0.9% 225 ML IV PRN (05:30)
[2018-07-05] MEDS: PROPOFOL 1,000 MG/100 ML BOTTLE IV SCH ×4 (05:30→23:22)
[2018-07-05] MEDS: POTASSIUM CHLORIDE RIDER 20 MEQ in PREMIX 1 EACH IV PRN (05:30)
[2018-07-05] MEDS: MAGNESIUM SULF RIDER 2 GM in PREMIX 1 EACH IV PRN (05:30)
[2018-07-05] MEDS ORDERED: SODIUM CHLORIDE 0.9% 500 ML IV ONE (07:10)
[2018-07-05] MEDS ORDERED: CALCIUM GLUCONATE IV ONE (08:41)
[2018-07-05] MEDS ORDERED: SODIUM CHLORIDE 0.9% IV ONE (08:41)
[2018-07-05] MEDS: MINERAL OIL/PETROLATUM OPH OINT 3.5 GM TUBE BOTH EYES SCH ×3 (09:03→20:46)
[2018-07-05] MEDS: APIXABAN 5 MG TABLET PO SCH ×2 (09:07→20:46)
[2018-07-05] MEDS: SODIUM CHLORIDE 0.9% 1,000 ML IV SCH (09:22)
[2018-07-05] MEDS: NOREPINEPHRINE 16 MG in SODIUM CHLORIDE 0.9% 234 ML IV PRN (10:02)
[2018-07-05] MEDS: PANTOPRAZOLE 40 MG VIAL IV SCH (15:23)
[2018-07-05] MEDS ORDERED: HEPARIN/NACL 0.9% 2 UNITS/ML 500 ML IV ONE (16:29)
[2018-07-05] MEDS: LEVOFLOXACIN INJ 500 MG in PREMIX 1 EACH IV SCH (17:55)
[2018-07-05] MEDS: METOCLOPRAMIDE 10 MG/2 ML VIAL IV SCH (18:22)
[2018-07-06] MEDS: METOCLOPRAMIDE 10 MG/2 ML VIAL IV SCH ×5 (00:36→23:25)
[2018-07-06] MEDS: INSULIN REGULAR 100 UNIT/ML SUBCUT SCH ×7 (00:36→23:16)
[2018-07-06] MEDS ORDERED: SODIUM CHLORIDE 0.9% 500 ML IV ONE (01:34)
[2018-07-06 01:38] LABS: ABG Base Excess -5.8 MMOL/L (-2.5-2.5); ABG HCO3 19.9 MMOL/L (20-26); ABG Oxygen Saturation 98.4 % (95-100); ABG PCO2 39.6 MM HG (35-48); ABG PH 7.318 (7.35-7.45); ABG PO2 150.5 MM HG (80-95); ABG TCO2 21.1 MMOL/L (23-27)
[2018-07-06 01:48] LABS: Basophils % 0.1 % (0.0-0.8); Eosinophils % 0.1 % (0.00-10.9); Hematocrit 31.2 VOL% (42.0-52.0); Hemoglobin 9.9 GM/DL (14.0-18.0); Immature Granulocytes % 1.2 %; Lymphocytes # 0.5 10*3/uL (1.4-4.0); Lymphocytes % 5.8 % (21.2-54.2); Mean Corpuscular HGB Conc 31.7 GM/DL (32-36); Mean Corpuscular Hemoglobin 28 PG (27-34); Mean Corpuscular Volume 88.4 FL (87-102); Mean Platelet Volume 10.2 FL (9.6-12.0); Monocytes % 12.2 % (1.7-12.7); NRBC # 0.02 10*3/uL; Neutrophils # 6.9 10*3/uL (1.4-7.4); Neutrophils % 80.6 % (38.7-73.9); Platelet Count 106 T/CUMM (130-400); Red Blood Count 3.53 MC/CUMM (3.8-5.5); White Blood Count 8.6 T/CUMM (4-12)
[2018-07-06 01:56] LABS: Bilirubin,Total 0.8 MG/DL (0.2-1.0); Calcium 6.5 MG/DL (8.5-10.1); Potassium 3.4 MMOL/L (3.5-5.1); Total Protein 5.6 G/DL (6.4-8.3)
[2018-07-06] MEDS ORDERED: SODIUM CHLORIDE 0.9% 1,000 ML IV SCH (02:00)
[2018-07-06] MEDS: fentaNYL INJ 1,250 MCG in SODIUM CHLORIDE 0.9% 225 ML IV PRN (02:06)
[2018-07-06] MEDS ORDERED: VECURONIUM 10 MG VIAL IV ONE ×2 (05:00→05:08)
[2018-07-06] MEDS: MAGNESIUM SULF RIDER 2 GM in PREMIX 1 EACH IV PRN (05:45)
[2018-07-06] MEDS: POTASSIUM CHLORIDE RIDER 20 MEQ in PREMIX 1 EACH IV PRN ×2 (05:45→18:55)
[2018-07-06] MEDS: POTASSIUM CHLORIDE RIDER 10 MEQ in PREMIX 1 EACH IV PRN (08:07)
[2018-07-06] MEDS: APIXABAN 5 MG TABLET PO SCH ×2 (08:48→21:08)
[2018-07-06] MEDS: MINERAL OIL/PETROLATUM OPH OINT 3.5 GM TUBE BOTH EYES SCH ×3 (08:48→21:09)
[2018-07-06] MEDS ORDERED: NOREPINEPHRINE 4 MG/4 ML VIAL IV ONE (14:05)
[2018-07-06] MEDS: PANTOPRAZOLE 40 MG VIAL IV SCH (14:24)
[2018-07-06] MEDS ORDERED: SODIUM CHLORIDE 0.45% 1,000 ML IV SCH (16:00)
[2018-07-06] MEDS ORDERED: SODIUM CHLORIDE 0.9% 1,000 ML IV PRN (16:07)
[2018-07-06 16:26] LABS: Hematocrit 32.5 VOL% (42.0-52.0); Hemoglobin 10.3 GM/DL (14.0-18.0)
[2018-07-06] MEDS: PROPOFOL 1,000 MG/100 ML BOTTLE IV SCH ×2 (16:37→23:02)
[2018-07-06 16:44] LABS: Calcium 6.4 MG/DL (8.5-10.1); Osmolality,Calculated 301.3 MOS/KG (273-304); Potassium 3.7 MMOL/L (3.5-5.1)
[2018-07-06] MEDS: LEVOFLOXACIN INJ 500 MG in PREMIX 1 EACH IV SCH (17:11)
[2018-07-06] MEDS: PHENYLEPHRINE DRIP 40 MG/250 ML PREMIX IV PRN (18:54)
[2018-07-07 01:11] LABS: Hematocrit 30.5 VOL% (42.0-52.0); Hemoglobin 9.7 GM/DL (14.0-18.0)
[2018-07-07 03:16] LABS: Basophils % 0.1 % (0.0-0.8); Eosinophils # 0.1 10*3/uL (0.0-0.87); Eosinophils % 0.6 % (0.00-10.9); Hematocrit 31.4 VOL% (42.0-52.0); Hemoglobin 9.8 GM/DL (14.0-18.0); Immature Granulocytes % 0.8 %; Immature Granulocytes Absolute 0.07 #; Lymphocytes # 0.7 10*3/uL (1.4-4.0); Lymphocytes % 7.7 % (21.2-54.2); Mean Corpuscular HGB Conc 31.2 GM/DL (32-36); Mean Corpuscular Hemoglobin 28 PG (27-34); Mean Corpuscular Volume 89.7 FL (87-102); Mean Platelet Volume 10.7 FL (9.6-12.0); Monocytes # 1.5 10*3/uL (0.11-0.8); Monocytes % 16.5 % (1.7-12.7); NRBC # 0.04 10*3/uL; Neutrophils # 6.7 10*3/uL (1.4-7.4); Neutrophils % 74.3 % (38.7-73.9); Platelet Count 100 T/CUMM (130-400); Red Cell Distribution Width 17.9 % (9.3-17.3); White Blood Count 9.1 T/CUMM (4-12)
[2018-07-07 03:24] LABS: Calcium 5.9 MG/DL (8.5-10.1); Osmolality,Calculated 296.4 MOS/KG (273-304); Potassium 3.8 MMOL/L (3.5-5.1)
[2018-07-07 03:41] LABS: Lymphocytes 12 % (20-55); Segmented Neutrophils 76 % (50-85)
[2018-07-07 03:42] LABS: Platelet Estimate Decreased
[2018-07-07 03:43] LABS: Ovalocytes 1+; Total Cells Counted 100
[2018-07-07 03:44] LABS: ABG Base Excess -2.7 MMOL/L (-2.5-2.5); ABG HCO3 22.1 MMOL/L (20-26); ABG Oxygen Saturation 96.1 % (95-100); ABG PCO2 38.5 MM HG (35-48); ABG PH 7.369 (7.35-7.45); ABG PO2 77.3 MM HG (80-95); ABG TCO2 20.2 MMOL/L (23-27)
[2018-07-07] MEDS: PHENYLEPHRINE DRIP 40 MG/250 ML PREMIX IV PRN ×2 (03:50→18:30)
[2018-07-07] MEDS: INSULIN REGULAR 100 UNIT/ML SUBCUT SCH ×5 (03:55→19:55)
[2018-07-07] MEDS: MAGNESIUM SULF RIDER 2 GM in PREMIX 1 EACH IV PRN (04:54)
[2018-07-07] MEDS: POTASSIUM CHLORIDE RIDER 20 MEQ in PREMIX 1 EACH IV PRN (04:54)
[2018-07-07] MEDS: METOCLOPRAMIDE 10 MG/2 ML VIAL IV SCH ×3 (05:13→18:18)
[2018-07-07 08:49] LABS: Hematocrit 31.4 VOL% (42.0-52.0)
[2018-07-07] MEDS: MINERAL OIL/PETROLATUM OPH OINT 3.5 GM TUBE BOTH EYES SCH ×3 (09:24→20:12)
[2018-07-07] MEDS: APIXABAN 5 MG TABLET PO SCH ×2 (09:24→20:12)
[2018-07-07] MEDS ORDERED: MORPHINE 4 MG/1 ML VIAL IV PRN (13:39)
[2018-07-07] MEDS: PANTOPRAZOLE 40 MG VIAL IV SCH (14:26)
[2018-07-07] MEDS: LEVOFLOXACIN INJ 500 MG in PREMIX 1 EACH IV SCH (16:27)
[2018-07-07] MEDS: PROPOFOL 1,000 MG/100 ML BOTTLE IV SCH ×2 (18:18→22:31)
[2018-07-07] MEDS: MORPHINE 4 MG/1 ML VIAL IV PRN (20:50)
[2018-07-08] MEDS: METOCLOPRAMIDE 10 MG/2 ML VIAL IV SCH ×5 (00:37→23:52)
[2018-07-08] MEDS: INSULIN REGULAR 100 UNIT/ML SUBCUT SCH ×7 (00:37→23:40)
[2018-07-08 03:50] LABS: ABG Base Excess 0.5 MMOL/L (-2.5-2.5); ABG HCO3 24.8 MMOL/L (20-26); ABG Oxygen Saturation 97.4 % (95-100); ABG PCO2 38.8 MM HG (35-48); ABG PH 7.415 (7.35-7.45); ABG PO2 87.7 MM HG (80-95); ABG TCO2 21.8 MMOL/L (23-27)
[2018-07-08] MEDS: PHENYLEPHRINE DRIP 40 MG/250 ML PREMIX IV PRN (03:56)
[2018-07-08 04:05] LABS: Basophils % 0.1 % (0.0-0.8); Eosinophils # 0.2 10*3/uL (0.0-0.87); Eosinophils % 1.7 % (0.00-10.9); Hematocrit 29.7 VOL% (42.0-52.0); Hemoglobin 9.6 GM/DL (14.0-18.0); Immature Granulocytes % 0.9 %; Immature Granulocytes Absolute 0.09 #; Lymphocytes # 0.8 10*3/uL (1.4-4.0); Mean Corpuscular HGB Conc 32.3 GM/DL (32-36); Mean Corpuscular Hemoglobin 28 PG (27-34); Mean Corpuscular Volume 87.9 FL (87-102); Mean Platelet Volume 10.5 FL (9.6-12.0); Monocytes # 1.2 10*3/uL (0.11-0.8); Monocytes % 11.5 % (1.7-12.7); NRBC # 0.06 10*3/uL; Neutrophils # 7.8 10*3/uL (1.4-7.4); Neutrophils % 77.8 % (38.7-73.9); Platelet Count 91 T/CUMM (130-400); Red Blood Count 3.38 MC/CUMM (3.8-5.5); Red Cell Distribution Width 17.4 % (9.3-17.3); White Blood Count 10.1 T/CUMM (4-12)
[2018-07-08 04:24] LABS: Albumin 1.9 G/DL (3.4-5.0); Bilirubin,Total 1.1 MG/DL (0.2-1.0); Osmolality,Calculated 294.6 MOS/KG (273-304); Potassium 3.7 MMOL/L (3.5-5.1); Total Protein 5.5 G/DL (6.4-8.3)
[2018-07-08 04:37] LABS: Hypochromasia Slight; Lymphocytes 3 % (20-55); Platelet Estimate Decreased; Segmented Neutrophils 96 % (50-85); Total Cells Counted 100
[2018-07-08 04:58] LABS: Calcium 5.8 MG/DL (8.5-10.1)
[2018-07-08] MEDS ORDERED: CALCIUM GLUCONATE 2,000 MG in SODIUM CHLORIDE 0.9% 100 ML IV ONE (08:30)
[2018-07-08] MEDS: MINERAL OIL/PETROLATUM OPH OINT 3.5 GM TUBE BOTH EYES SCH ×3 (08:58→20:27)
[2018-07-08] MEDS: AMIODARONE 200 MG TABLET PO SCH (09:00)
[2018-07-08] MEDS: APIXABAN 5 MG TABLET PO SCH ×2 (09:00→20:26)
[2018-07-08] MEDS: DEXMEDETOMIDINE 200 MCG in SODIUM CHLORIDE 0.9% 48 ML IV PRN ×3 (09:07→18:20)
[2018-07-08] MEDS ORDERED: HEPARIN/NACL 0.9% 2 UNITS/ML 500 ML IV ONE (09:41)
[2018-07-08] MEDS ORDERED: POTASSIUM PHOS/SOD PHOS POWDER 250 MG PACK PER TUBE ONE (10:00)
[2018-07-08] MEDS: FAMOTIDINE 20 MG/2 ML VIAL IV SCH ×2 (12:26→23:52)
[2018-07-08] MEDS ORDERED: ALBUMIN 25% 12.5 GM/50 ML VIAL IV ONE (14:16)
[2018-07-08] MEDS: ALBUMIN 25% 25 GM in PREMIX 1 EACH IV SCH ×2 (14:21→22:13)
[2018-07-08] MEDS ORDERED: ALBUMIN 25% 25 GM in PREMIX 1 EACH IV SCH (14:30)
[2018-07-08] MEDS: PROPOFOL 1,000 MG/100 ML BOTTLE IV SCH (15:29)
[2018-07-08] MEDS: MORPHINE 4 MG/1 ML VIAL IV PRN ×2 (20:26→23:53)
[2018-07-09] MEDS: DEXMEDETOMIDINE 200 MCG in SODIUM CHLORIDE 0.9% 48 ML IV PRN ×4 (02:29→21:07)
[2018-07-09] MEDS: MORPHINE 4 MG/1 ML VIAL IV PRN ×5 (02:29→23:51)
[2018-07-09 03:47] LABS: ABG Base Excess 2.3 MMOL/L (-2.5-2.5); ABG HCO3 26.5 MMOL/L (20-26); ABG Oxygen Saturation 98.4 % (95-100); ABG PCO2 35.9 MM HG (35-48); ABG PH 7.467 (7.35-7.45); ABG TCO2 23.8 MMOL/L (23-27)
[2018-07-09 03:57] LABS: Basophils % 0.1 % (0.0-0.8); Eosinophils # 0.1 10*3/uL (0.0-0.87); Eosinophils % 1.3 % (0.00-10.9); Hematocrit 22.8 VOL% (42.0-52.0); Immature Granulocytes % 0.8 %; Immature Granulocytes Absolute 0.06 #; Lymphocytes # 0.6 10*3/uL (1.4-4.0); Lymphocytes % 6.9 % (21.2-54.2); Mean Corpuscular HGB Conc 32.5 GM/DL (32-36); Mean Corpuscular Hemoglobin 28 PG (27-34); Mean Corpuscular Volume 86.7 FL (87-102); Mean Platelet Volume 11.1 FL (9.6-12.0); Monocytes # 0.7 10*3/uL (0.11-0.8); Monocytes % 9.2 % (1.7-12.7); NRBC # 0.02 10*3/uL; Neutrophils # 6.5 10*3/uL (1.4-7.4); Neutrophils % 81.7 % (38.7-73.9); Red Blood Count 2.63 MC/CUMM (3.8-5.5); Red Cell Distribution Width 17.3 % (9.3-17.3); White Blood Count 7.9 T/CUMM (4-12)
[2018-07-09 04:11] LABS: Osmolality,Calculated 289.8 MOS/KG (273-304); Potassium 3.6 MMOL/L (3.5-5.1)
[2018-07-09 04:18] LABS: Calcium 5.7 MG/DL (8.5-10.1)
[2018-07-09] MEDS: INSULIN REGULAR 100 UNIT/ML SUBCUT SCH ×6 (04:20→23:52)
[2018-07-09 04:26] LABS: Platelet Count 82 T/CUMM (130-400)
[2018-07-09 04:27] LABS: Hemoglobin 7.4 GM/DL (14.0-18.0)
[2018-07-09] MEDS: MAGNESIUM SULF RIDER 2 GM in PREMIX 1 EACH IV PRN (05:14)
[2018-07-09] MEDS: POTASSIUM CHLORIDE RIDER 20 MEQ in PREMIX 1 EACH IV PRN (05:15)
[2018-07-09 05:18] LABS: Band Neutrophils 2 % (0-10); Eosinophils 4 % (0-10); Lymphocytes 3 % (20-55); Segmented Neutrophils 86 % (50-85); Total Cells Counted 100
[2018-07-09 05:19] LABS: Hypochromasia 1+; Microcytosis 1+; Platelet Estimate Decreased
[2018-07-09 05:35] LABS: Basophils % 0.1 % (0.0-0.8); Eosinophils # 0.1 10*3/uL (0.0-0.87); Eosinophils % 1.2 % (0.00-10.9); Hematocrit 27.5 VOL% (42.0-52.0); Hemoglobin 8.9 GM/DL (14.0-18.0); Immature Granulocytes % 0.6 %; Immature Granulocytes Absolute 0.06 #; Lymphocytes # 0.6 10*3/uL (1.4-4.0); Lymphocytes % 6.4 % (21.2-54.2); Mean Corpuscular HGB Conc 32.4 GM/DL (32-36); Mean Corpuscular Hemoglobin 28 PG (27-34); Mean Corpuscular Volume 87.3 FL (87-102); Mean Platelet Volume 11.3 FL (9.6-12.0); Monocytes % 10.1 % (1.7-12.7); NRBC # 0.02 10*3/uL; Neutrophils # 7.7 10*3/uL (1.4-7.4); Neutrophils % 81.6 % (38.7-73.9); Platelet Count 95 T/CUMM (130-400); Red Blood Count 3.15 MC/CUMM (3.8-5.5); Red Cell Distribution Width 17.6 % (9.3-17.3); White Blood Count 9.4 T/CUMM (4-12)
[2018-07-09] MEDS: METOCLOPRAMIDE 10 MG/2 ML VIAL IV SCH ×4 (06:09→23:52)
[2018-07-09] MEDS: ALBUMIN 25% 25 GM in PREMIX 1 EACH IV SCH (06:10)
[2018-07-09 06:26] LABS: Hypochromasia 2+; Lymphocytes 7 % (20-55); Platelet Estimate Decreased; Segmented Neutrophils 82 % (50-85); Total Cells Counted 100
[2018-07-09] MEDS: APIXABAN 5 MG TABLET PO SCH ×2 (09:24→20:20)
[2018-07-09] MEDS: AMIODARONE 200 MG TABLET PO SCH (09:24)
[2018-07-09] MEDS: MINERAL OIL/PETROLATUM OPH OINT 3.5 GM TUBE BOTH EYES SCH ×3 (09:24→20:20)
[2018-07-09 09:58] LABS: ABG Base Excess -1.9 MMOL/L (-2.5-2.5); ABG HCO3 22.6 MMOL/L (20-26); ABG Oxygen Saturation 88.9 % (95-100); ABG PCO2 49.8 MM HG (35-48); ABG PH 7.305 (7.35-7.45); ABG PO2 61.9 MM HG (80-95); ABG TCO2 22.8 MMOL/L (23-27); Pt O2 Delivery Device Ventilator
[2018-07-09] MEDS ORDERED: CALCIUM GLUCONATE 2,000 MG in SODIUM CHLORIDE 0.9% 100 ML IV ONE (10:00)
[2018-07-09] MEDS ORDERED: FUROSEMIDE 40 MG/4 ML VIAL IV ONE (10:25)
[2018-07-09] MEDS: methylPREDNISolone SOD SUC 40 MG/1 ML VIAL IV SCH ×2 (11:25→18:24)
[2018-07-09] MEDS: ALBUTEROL 2.5 MG/3 ML NEB RESP TX PRN (11:26)
[2018-07-09] MEDS: FAMOTIDINE 20 MG/2 ML VIAL IV SCH ×2 (12:28→23:52)
[2018-07-09] MEDS: ALBUTEROL/IPRATROPIUM 3 ML NEB RESP TX SCH ×2 (13:42→19:57)
[2018-07-09] MEDS ORDERED: LACTULOSE 20 GM/30 ML UDCUP PO ONE (14:30)
[2018-07-09] MEDS: PROPOFOL 1,000 MG/100 ML BOTTLE IV SCH (15:42)
[2018-07-10] MEDS ORDERED: LORazepam 2 MG/1 ML VIAL IV ONE ×3 (01:08→18:04)
[2018-07-10] MEDS: ALBUTEROL/IPRATROPIUM 3 ML NEB RESP TX SCH ×4 (01:59→19:50)
[2018-07-10] MEDS: PHENYLEPHRINE DRIP 40 MG/250 ML PREMIX IV PRN (02:05)
[2018-07-10] MEDS: methylPREDNISolone SOD SUC 40 MG/1 ML VIAL IV SCH ×3 (02:36→18:15)
[2018-07-10] MEDS: DEXMEDETOMIDINE 200 MCG in SODIUM CHLORIDE 0.9% 48 ML IV PRN (02:36)
[2018-07-10 04:23] LABS: Hematocrit 27.2 VOL% (42.0-52.0); Hemoglobin 8.8 GM/DL (14.0-18.0); Immature Granulocytes % 0.5 %; Immature Granulocytes Absolute 0.04 #; Lymphocytes # 0.3 10*3/uL (1.4-4.0); Lymphocytes % 3.5 % (21.2-54.2); Mean Corpuscular HGB Conc 32.4 GM/DL (32-36); Mean Corpuscular Hemoglobin 28 PG (27-34); Mean Corpuscular Volume 87.2 FL (87-102); Mean Platelet Volume 10.5 FL (9.6-12.0); Monocytes # 0.3 10*3/uL (0.11-0.8); Monocytes % 3.1 % (1.7-12.7); NRBC # 0.02 10*3/uL; Neutrophils # 8.1 10*3/uL (1.4-7.4); Neutrophils % 92.9 % (38.7-73.9); Platelet Count 134 T/CUMM (130-400); Red Blood Count 3.12 MC/CUMM (3.8-5.5); Red Cell Distribution Width 17.4 % (9.3-17.3); White Blood Count 8.7 T/CUMM (4-12)
[2018-07-10 04:29] LABS: ABG Base Excess 3.7 MMOL/L (-2.5-2.5); ABG HCO3 27.7 MMOL/L (20-26); ABG Oxygen Saturation 97.2 % (95-100); ABG PH 7.459 (7.35-7.45); ABG PO2 83.8 MM HG (80-95); ABG TCO2 25.4 MMOL/L (23-27); Allen Test Positive; Pt O2 Delivery Device Ventilator
[2018-07-10 04:48] LABS: Calcium 5.9 MG/DL (8.5-10.1); Potassium 3.9 MMOL/L (3.5-5.1)
[2018-07-10 04:52] LABS: Prealbumin 8.6 MG/DL (20-40)
[2018-07-10] MEDS: INSULIN REGULAR 100 UNIT/ML SUBCUT SCH ×6 (04:56→23:09)
[2018-07-10 05:34] LABS: Anisocytosis Slight; Lymphocytes 4 % (20-55); Macrocytosis Slight; Platelet Estimate Decreased; Segmented Neutrophils 93 % (50-85); Total Cells Counted 100
[2018-07-10] MEDS: POTASSIUM CHLORIDE RIDER 20 MEQ in PREMIX 1 EACH IV PRN (06:00)
[2018-07-10] MEDS: METOCLOPRAMIDE 10 MG/2 ML VIAL IV SCH ×4 (06:00→23:35)
[2018-07-10] MEDS: AMIODARONE 200 MG TABLET PO SCH (08:25)
[2018-07-10] MEDS: APIXABAN 5 MG TABLET PO SCH ×2 (08:26→20:22)
[2018-07-10] MEDS: FUROSEMIDE 40 MG/4 ML VIAL IV SCH (08:26)
[2018-07-10] MEDS: MINERAL OIL/PETROLATUM OPH OINT 3.5 GM TUBE BOTH EYES SCH ×3 (08:27→20:22)
[2018-07-10] MEDS: ALBUTEROL 2.5 MG/3 ML NEB RESP TX PRN (11:30)
[2018-07-10] MEDS: FAMOTIDINE 20 MG/2 ML VIAL IV SCH ×2 (12:32→23:35)
[2018-07-10] MEDS ORDERED: CALCIUM GLUCONATE 2,000 MG in SODIUM CHLORIDE 0.9% 100 ML IV ONE (13:30)
[2018-07-10] MEDS: PROPOFOL 1,000 MG/100 ML BOTTLE IV SCH (16:06)
[2018-07-10] MEDS: MORPHINE 4 MG/1 ML VIAL IV PRN ×2 (16:06→20:21)
[2018-07-10] MEDS: ZIPRASIDONE 20 MG/1 ML VIAL IM PRN (23:43)
[2018-07-11] MEDS: LISINOPRIL 20 MG TABLET PO SCH ×2 (00:34→08:18)
[2018-07-11] MEDS: ALBUTEROL/IPRATROPIUM 3 ML NEB RESP TX SCH ×4 (01:19→18:52)
[2018-07-11] MEDS: methylPREDNISolone SOD SUC 40 MG/1 ML VIAL IV SCH ×3 (02:26→23:51)
[2018-07-11] MEDS: INSULIN REGULAR 100 UNIT/ML SUBCUT SCH ×6 (04:06→23:57)
[2018-07-11 04:49] LABS: Basophils % 0.1 % (0.0-0.8); Hematocrit 28.5 VOL% (42.0-52.0); Immature Granulocytes % 0.7 %; Immature Granulocytes Absolute 0.09 #; Lymphocytes # 0.3 10*3/uL (1.4-4.0); Mean Corpuscular HGB Conc 31.6 GM/DL (32-36); Mean Corpuscular Hemoglobin 28 PG (27-34); Mean Corpuscular Volume 87.2 FL (87-102); Mean Platelet Volume 10.3 FL (9.6-12.0); Monocytes # 0.5 10*3/uL (0.11-0.8); Monocytes % 3.6 % (1.7-12.7); Neutrophils % 93.6 % (38.7-73.9); Platelet Count 216 T/CUMM (130-400); Red Blood Count 3.27 MC/CUMM (3.8-5.5); Red Cell Distribution Width 17.4 % (9.3-17.3); White Blood Count 12.8 T/CUMM (4-12)
[2018-07-11 04:58] LABS: Calcium 5.9 MG/DL (8.5-10.1); Osmolality,Calculated 289.3 MOS/KG (273-304); Potassium 3.8 MMOL/L (3.5-5.1)
[2018-07-11 05:25] LABS: Band Neutrophils 4 % (0-10); Lymphocytes 2 % (20-55); Segmented Neutrophils 92 % (50-85); Total Cells Counted 100
[2018-07-11 05:26] LABS: Hypochromasia 2+; Platelet Estimate Normal
[2018-07-11] MEDS: METOCLOPRAMIDE 10 MG/2 ML VIAL IV SCH ×4 (05:34→23:53)
[2018-07-11] MEDS: POTASSIUM CHLORIDE RIDER 10 MEQ in PREMIX 1 EACH IV PRN ×2 (05:52→06:22)
[2018-07-11] MEDS: MAGNESIUM SULF RIDER 2 GM in PREMIX 1 EACH IV PRN ×2 (06:54→08:49)
[2018-07-11] MEDS ORDERED: CALCIUM GLUCONATE 2,000 MG in SODIUM CHLORIDE 0.9% 100 ML IV ONE ×2 (07:50→11:30)
[2018-07-11 07:58] LABS: ABG HCO3 28.9 MMOL/L (20-26); ABG Oxygen Saturation 99.6 % (95-100); ABG PCO2 37.2 MM HG (35-48); ABG PH 7.492 (7.35-7.45); ABG TCO2 25.8 MMOL/L (23-27); Allen Test Positive; Pt O2 Delivery Device BIPAP
[2018-07-11] MEDS: APIXABAN 5 MG TABLET PO SCH ×2 (08:18→21:33)
[2018-07-11] MEDS: AMIODARONE 200 MG TABLET PO SCH (08:18)
[2018-07-11] MEDS: FUROSEMIDE 40 MG/4 ML VIAL IV SCH (08:18)
[2018-07-11] MEDS: MINERAL OIL/PETROLATUM OPH OINT 3.5 GM TUBE BOTH EYES SCH ×3 (08:18→21:33)
[2018-07-11] MEDS: MORPHINE 4 MG/1 ML VIAL IV PRN (11:12)
[2018-07-11] MEDS: CARVEDILOL 3.125 MG TABLET PO SCH ×4 (12:10→21:33)
[2018-07-11] MEDS: FAMOTIDINE 20 MG/2 ML VIAL IV SCH ×2 (12:10→23:54)
[2018-07-11] MEDS: ZIPRASIDONE 20 MG/1 ML VIAL IM PRN (16:43)
[2018-07-11] MEDS: PROPOFOL 1,000 MG/100 ML BOTTLE IV SCH (17:12)
[2018-07-12] MEDS: ALBUTEROL/IPRATROPIUM 3 ML NEB RESP TX SCH ×4 (00:34→19:08)
[2018-07-12] MEDS: INSULIN REGULAR 100 UNIT/ML SUBCUT SCH ×5 (04:46→21:12)
[2018-07-12 05:06] LABS: Basophils % 0.1 % (0.0-0.8); Hematocrit 30.2 VOL% (42.0-52.0); Immature Granulocytes % 0.6 %; Immature Granulocytes Absolute 0.08 #; Lymphocytes # 0.3 10*3/uL (1.4-4.0); Lymphocytes % 1.8 % (21.2-54.2); Mean Corpuscular HGB Conc 33.1 GM/DL (32-36); Mean Corpuscular Hemoglobin 29 PG (27-34); Mean Corpuscular Volume 86.3 FL (87-102); Mean Platelet Volume 9.7 FL (9.6-12.0); Monocytes # 0.4 10*3/uL (0.11-0.8); Monocytes % 3.1 % (1.7-12.7); Neutrophils # 13.3 10*3/uL (1.4-7.4); Neutrophils % 94.4 % (38.7-73.9); Platelet Count 286 T/CUMM (130-400); Red Cell Distribution Width 17.2 % (9.3-17.3)
[2018-07-12 05:30] LABS: Albumin 2.6 G/DL (3.4-5.0); Bilirubin,Total 0.5 MG/DL (0.2-1.0); Osmolality,Calculated 286.5 MOS/KG (273-304); Potassium 4.1 MMOL/L (3.5-5.1); Total Protein 6.2 G/DL (6.4-8.3)
[2018-07-12 05:52] LABS: Calcium 5.8 MG/DL (8.5-10.1)
[2018-07-12] MEDS: METOCLOPRAMIDE 10 MG/2 ML VIAL IV SCH ×4 (05:59→23:55)
[2018-07-12 06:11] LABS: Band Neutrophils 4 % (0-10); Lymphocytes 2 % (20-55); Platelet Estimate Normal; Segmented Neutrophils 94 % (50-85); Total Cells Counted 100
[2018-07-12 06:12] LABS: Anisocytosis 1+
[2018-07-12] MEDS ORDERED: CALCIUM GLUCONATE 1,000 MG in SODIUM CHLORIDE 0.9% 100 ML IV ONE (06:23)
[2018-07-12] MEDS: FUROSEMIDE 40 MG/4 ML VIAL IV SCH (08:15)
[2018-07-12] MEDS: AMIODARONE 200 MG TABLET PO SCH (08:15)
[2018-07-12] MEDS: CARVEDILOL 3.125 MG TABLET PO SCH ×2 (08:15→21:34)
[2018-07-12] MEDS: LISINOPRIL 20 MG TABLET PO SCH (08:15)
[2018-07-12] MEDS: APIXABAN 5 MG TABLET PO SCH ×2 (08:15→21:34)
[2018-07-12] MEDS: MINERAL OIL/PETROLATUM OPH OINT 3.5 GM TUBE BOTH EYES SCH ×3 (08:16→21:34)
[2018-07-12] MEDS: FAMOTIDINE 20 MG/2 ML VIAL IV SCH ×2 (11:00→23:57)
[2018-07-12] MEDS: methylPREDNISolone SOD SUC 40 MG/1 ML VIAL IV SCH ×2 (11:00→23:59)
[2018-07-12] MEDS ORDERED: CALCIUM GLUCONATE 2,000 MG in SODIUM CHLORIDE 0.9% 100 ML IV ONE (12:03)
[2018-07-12] MEDS: CALCIUM CARBONATE CHEW 500 MG TABLET PO SCH ×2 (12:54→21:33)
[2018-07-12] MEDS: ZIPRASIDONE 20 MG/1 ML VIAL IM PRN (13:47)
[2018-07-12] MEDS: PROPOFOL 1,000 MG/100 ML BOTTLE IV SCH (16:36)
[2018-07-12] MEDS: ALBUTEROL 2.5 MG/3 ML NEB RESP TX PRN (17:44)
[2018-07-12 17:46] LABS: Apearance,Urine Slightly Hazy (Clear); Bacteria,Urine Occasional /HPF (Few); Bilirubin,Urine Negative (Negative); Blood, Urine Negative (Negative); Glucose,Urine (UA) Negative (Negative); Hyaline Casts,Urine 4 /LPF (0-3); Ketones,Urine Negative (Negative); Mucus,Urine Occasional /LPF (Occasional); Nitrite,Urine Negative (Negative); Protein,Urine Negative; RBC,Urine 2 /HPF (0-4); Squamous Epithelial Cell,Urine Occasional /HPF (0-10); Urine Color Yellow (Yellow); Urine Specific Gravity 1.009 (1.001-1.035); Urine Urobilinogen < 2.0 EU/DL (0.2-1.0); WBC,Urine 1 /HPF (0-6)
[2018-07-12] MEDS: MORPHINE 4 MG/1 ML VIAL IV PRN (18:08)
[2018-07-12] MEDS: ATORVASTATIN 40 MG TABLET PO SCH (21:34)
[2018-07-13] MEDS: ZIPRASIDONE 20 MG/1 ML VIAL IM PRN (00:02)
[2018-07-13] MEDS: INSULIN REGULAR 100 UNIT/ML SUBCUT SCH ×6 (00:04→20:21)
[2018-07-13] MEDS: ALBUTEROL/IPRATROPIUM 3 ML NEB RESP TX SCH ×4 (01:06→18:45)
[2018-07-13 05:35] LABS: Basophils % 0.1 % (0.0-0.8); Hematocrit 29.9 VOL% (42.0-52.0); Hemoglobin 9.8 GM/DL (14.0-18.0); Immature Granulocytes % 0.6 %; Immature Granulocytes Absolute 0.09 #; Lymphocytes # 0.2 10*3/uL (1.4-4.0); Lymphocytes % 1.4 % (21.2-54.2); Mean Corpuscular HGB Conc 32.8 GM/DL (32-36); Mean Corpuscular Hemoglobin 28 PG (27-34); Mean Corpuscular Volume 85.9 FL (87-102); Monocytes # 0.6 10*3/uL (0.11-0.8); Monocytes % 3.9 % (1.7-12.7); Neutrophils # 14.1 10*3/uL (1.4-7.4); Platelet Count 354 T/CUMM (130-400); Red Blood Count 3.48 MC/CUMM (3.8-5.5); Red Cell Distribution Width 16.7 % (9.3-17.3)
[2018-07-13 05:49] LABS: Albumin 2.5 G/DL (3.4-5.0); Bilirubin,Total 1.1 MG/DL (0.2-1.0); Calcium 5.9 MG/DL (8.5-10.1); Osmolality,Calculated 285.7 MOS/KG (273-304); Potassium 3.9 MMOL/L (3.5-5.1); Total Protein 5.8 G/DL (6.4-8.3)
[2018-07-13 06:08] LABS: Hypochromasia 1+; Lymphocytes 1 % (20-55); Platelet Estimate Adequate; Segmented Neutrophils 96 % (50-85); Total Cells Counted 100
[2018-07-13] MEDS: METOCLOPRAMIDE 10 MG/2 ML VIAL IV SCH ×3 (06:43→18:15)
[2018-07-13] MEDS: FUROSEMIDE 40 MG/4 ML VIAL IV SCH (08:49)
[2018-07-13] MEDS: LISINOPRIL 20 MG TABLET PO SCH (08:49)
[2018-07-13] MEDS: CALCIUM CARBONATE CHEW 500 MG TABLET PO SCH ×2 (08:49→21:00)
[2018-07-13] MEDS: CARVEDILOL 3.125 MG TABLET PO SCH ×2 (08:49→21:00)
[2018-07-13] MEDS: AMIODARONE 200 MG TABLET PO SCH (08:49)
[2018-07-13] MEDS: APIXABAN 5 MG TABLET PO SCH ×2 (08:57→21:01)
[2018-07-13] MEDS: MINERAL OIL/PETROLATUM OPH OINT 3.5 GM TUBE BOTH EYES SCH ×3 (08:57→21:01)
[2018-07-13] MEDS: FAMOTIDINE 20 MG/2 ML VIAL IV SCH (13:10)
[2018-07-13] MEDS: methylPREDNISolone SOD SUC 40 MG/1 ML VIAL IV SCH (13:10)
[2018-07-13] MEDS: PROPOFOL 1,000 MG/100 ML BOTTLE IV SCH (15:35)
[2018-07-13] MEDS: ATORVASTATIN 40 MG TABLET PO SCH (21:01)
[2018-07-14] MEDS: INSULIN REGULAR 100 UNIT/ML SUBCUT SCH ×6 (00:04→20:38)
[2018-07-14] MEDS: FAMOTIDINE 20 MG/2 ML VIAL IV SCH ×2 (00:04→12:00)
[2018-07-14] MEDS: methylPREDNISolone SOD SUC 40 MG/1 ML VIAL IV SCH ×2 (00:04→12:00)
[2018-07-14] MEDS: METOCLOPRAMIDE 10 MG/2 ML VIAL IV SCH ×4 (00:06→19:24)
[2018-07-14] MEDS: MORPHINE 4 MG/1 ML VIAL IV PRN (00:23)
[2018-07-14] MEDS: ALBUTEROL/IPRATROPIUM 3 ML NEB RESP TX SCH ×4 (00:24→19:34)
[2018-07-14 05:43] LABS: Basophils % 0.1 % (0.0-0.8); Hematocrit 29.8 VOL% (42.0-52.0); Hemoglobin 9.7 GM/DL (14.0-18.0); Immature Granulocytes % 0.7 %; Immature Granulocytes Absolute 0.11 #; Lymphocytes # 0.3 10*3/uL (1.4-4.0); Lymphocytes % 1.9 % (21.2-54.2); Mean Corpuscular HGB Conc 32.6 GM/DL (32-36); Mean Corpuscular Hemoglobin 28 PG (27-34); Mean Corpuscular Volume 86.6 FL (87-102); Mean Platelet Volume 9.8 FL (9.6-12.0); Monocytes # 0.6 10*3/uL (0.11-0.8); Monocytes % 4.1 % (1.7-12.7); Neutrophils # 14.7 10*3/uL (1.4-7.4); Neutrophils % 93.2 % (38.7-73.9); Platelet Count 374 T/CUMM (130-400); Red Blood Count 3.44 MC/CUMM (3.8-5.5); Red Cell Distribution Width 16.5 % (9.3-17.3); White Blood Count 15.8 T/CUMM (4-12)
[2018-07-14 06:03] LABS: Osmolality,Calculated 289.7 MOS/KG (273-304); Potassium 3.9 MMOL/L (3.5-5.1)
[2018-07-14 06:09] LABS: Hypochromasia 1+; Lymphocytes 1 % (20-55); Segmented Neutrophils 98 % (50-85); Total Cells Counted 100
[2018-07-14 06:10] LABS: Microcytosis 1+; Ovalocytes Slight; Platelet Estimate Normal; Target Cells Slight
[2018-07-14 06:16] LABS: Calcium 5.5 MG/DL (8.5-10.1)
[2018-07-14] MEDS: CARVEDILOL 3.125 MG TABLET PO SCH ×2 (09:15→21:23)
[2018-07-14] MEDS: LISINOPRIL 20 MG TABLET PO SCH (09:16)
[2018-07-14] MEDS: APIXABAN 5 MG TABLET PO SCH ×2 (09:16→21:23)
[2018-07-14] MEDS: AMIODARONE 200 MG TABLET PO SCH (09:16)
[2018-07-14] MEDS: CALCIUM CARBONATE CHEW 500 MG TABLET PO SCH ×4 (09:16→21:23)
[2018-07-14] MEDS: FUROSEMIDE 40 MG/4 ML VIAL IV SCH (09:17)
[2018-07-14] MEDS ORDERED: CALCIUM GLUCONATE 2,000 MG in SODIUM CHLORIDE 0.9% 100 ML IV ONE (10:00)
[2018-07-14] MEDS: MINERAL OIL/PETROLATUM OPH OINT 3.5 GM TUBE BOTH EYES SCH ×2 (13:40→17:01)
[2018-07-14] MEDS: ZIPRASIDONE 20 MG/1 ML VIAL IM PRN (21:23)
[2018-07-14] MEDS: ATORVASTATIN 40 MG TABLET PO SCH (21:23)
[2018-07-15] MEDS: methylPREDNISolone SOD SUC 40 MG/1 ML VIAL IV SCH (00:14)
[2018-07-15] MEDS: METOCLOPRAMIDE 10 MG/2 ML VIAL IV SCH ×3 (00:14→11:37)
[2018-07-15] MEDS: FAMOTIDINE 20 MG/2 ML VIAL IV SCH ×2 (00:17→11:36)
[2018-07-15] MEDS: INSULIN REGULAR 100 UNIT/ML SUBCUT SCH ×4 (00:18→11:36)
[2018-07-15] MEDS: ALBUTEROL/IPRATROPIUM 3 ML NEB RESP TX SCH ×3 (00:40→13:20)
[2018-07-15 06:07] LABS: Albumin 2.4 G/DL (3.4-5.0); Bilirubin,Total 0.9 MG/DL (0.2-1.0); Osmolality,Calculated 286.8 MOS/KG (273-304); Potassium 4.1 MMOL/L (3.5-5.1); Total Protein 5.8 G/DL (6.4-8.3)
[2018-07-15 06:16] LABS: Calcium 5.6 MG/DL (8.5-10.1)
[2018-07-15] MEDS ORDERED: CALCIUM GLUCONATE 2,000 MG in SODIUM CHLORIDE 0.9% 100 ML IV ONE (06:22)
[2018-07-15] MEDS: LISINOPRIL 20 MG TABLET PO SCH (09:33)
[2018-07-15] MEDS: AMIODARONE 200 MG TABLET PO SCH (09:34)
[2018-07-15] MEDS: CARVEDILOL 3.125 MG TABLET PO SCH (09:34)
[2018-07-15] MEDS: APIXABAN 5 MG TABLET PO SCH (09:34)
[2018-07-15] MEDS: CALCIUM CARBONATE CHEW 500 MG TABLET PO SCH ×2 (09:34→12:28)
[2018-07-15] MEDS: FUROSEMIDE 40 MG/4 ML VIAL IV SCH (09:35)
[2018-07-15] MEDS ORDERED: methylPREDNISolone SOD SUC 40 MG/1 ML VIAL IV SCH (12:00)
[2018-07-15] MEDS ORDERED: BRIMONIDINE 0.2% OPH SOLN 5 ML BOTTLE BOTH EYES SCH (15:00)
[2018-07-15 15:11] VITALS: BP 158/97
[2018-07-15] MEDS ORDERED: LATANOPROST 0.005% OPH SOLN 2.5 ML BOTTLE BOTH EYES SCH (21:00)
== END 2018-07-15 15:29 | DRG 308 ==
LOC: N.ED 14:28 → SUATTDRO 14:51 → N.EDINP 14:51 → N.ICU 15:46
PROVIDERS: ADMIT Internal Medicine; ATTEND Internal Medicine
PROC: BRONCHB (2018-07-10 08:05)